=== PATIENT | female | born 1975 | race Caucasian/White ===

== ENCOUNTER 2024-07-30 16:35 | Emergency (ER) | payer OTHER ==
[~2024-07-30] VITALS: Ht 165.1 cm; Wt 78.9 kg
[2024-07-30] MEDS ORDERED: Tdap Vaccine 0.5 ML SYR (Adult Vaccine) IM ONE (17:05)
[2024-07-30] MEDS ORDERED: DERMABOND 1 EA APPL T ONE (17:06)
== END 2024-07-30 17:26 | disposition home or self-care (01) ==
LOC: ED 16:35
DX: S61.011A Laceration without foreign body of right thumb without damage to nail, initial encounter (principal); E11.9 Type 2 diabetes mellitus without complications; W31.89XA Contact with other specified machinery, initial encounter; Y93.89 Activity, other specified; Y92.89 Other specified places as the place of occurrence of the external cause; Y99.8 Other external cause status

== ENCOUNTER 2024-09-07 12:41 | Emergency (ER) | payer MEDICAID ==
[~2024-09-07] VITALS: Ht 165.1 cm; Wt 78.5 kg
[2024-09-07] MEDS ORDERED: LISSAMINE GREEN 1.5 MG STRIP OP ONE (13:05)
[2024-09-07] MEDS ORDERED: CIPROFLOXACIN H10 ML OPH (13:43)
== END 2024-09-07 13:50 | disposition home or self-care (01) ==
LOC: ED 12:41
DX: S00.211A Abrasion of right eyelid and periocular area, initial encounter (principal); E11.9 Type 2 diabetes mellitus without complications; W44.8XXA Other foreign body entering into or through a natural orifice, initial encounter; Y93.A6 Activity, grass drills; Y92.89 Other specified places as the place of occurrence of the external cause; Y99.8 Other external cause status

== ENCOUNTER 2024-12-13 17:28 | Emergency (ER) | payer MEDICAID ==
[~2024-12-13] VITALS: Ht 165.1 cm; Wt 72.6 kg
[~2024-12-13 17:28] MED LIST: CIPROFLOXACIN H10 ML OPH
[2024-12-13] MEDS ORDERED: Acetaminophen/Oxycodone 5 MG/325 MG TABLET PO ONE (19:30)
== END 2024-12-13 20:36 | disposition home or self-care (01) ==
LOC: ED 17:28
DX: S96.912A Strain of unspecified muscle and tendon at ankle and foot level, left foot, initial encounter (principal); W22.09XA Striking against other stationary object, initial encounter; Y93.89 Activity, other specified; Y92.89 Other specified places as the place of occurrence of the external cause; Y99.8 Other external cause status